=== PATIENT | female | born 1950 | race Hispanic/Latino ===

== ENCOUNTER 2018-09-23 10:48 | Emergency (ER) | payer MEDICARE ==
--- NOTE | 2018-09-23 12:07 | RAD REPORT ---
EXAM DESCRIPTION: CT - Head C Spine Mpr Wo Con - 09/23/2018 11:41 am CLINICAL HISTORY: Head and neck injury status post fall. Head and neck pain COMPARISON: None. TECHNIQUE: Computed axial tomography of the head and cervical spine was obtained. Sagittal and coronal reconstruction was performed. All CT scans are performed using dose optimization technique as appropriate and may include automated exposure control or mA/KV adjustment according to patient size. FINDINGS: An intracranial bleed is not seen. The ventricles are normal in caliber. An extra-axial fl uid collection is not noted.Fluid within the visualized sinuses and mastoids is not seen A cervical fracture is not visualized. No dislocation is noted. Spondylosis involves the cervical spi ne resulting in mild central spinal stenosis. Moderate foraminal stenosis is also noted. IMPRESSION: No acute intracranial abnormality is seen. A cervical fracture is not visualized. If the patient continues to have symptoms to suggest intracra nial /spinal cord pathology then MRI would be recommended
--- NOTE | 2018-09-23 12:20 | EDPHYS ---
Physician Documentation [facility] Name: Cata Godwin Age: 67 yrs Sex: Female : 1950 Arrival Date: 09/23/2018 Time: 10:53 Bed 20 Private MD: ED Physician Joseph Mcintosh HPI: 09/23 11:19 This 67 yrs old Female presents to ER via Ambulatory with complaints of Fall cp Injury, Head Injury-Adult. 11:19 Details of fall: The patient fell from an upright position, while standing, and struck cp shower wall. 11:20 Onset: The symptoms/episode began/occurred 5 day(s) ago. Associated injuries: The cp patient sustained injury to the head, contusion, tenderness, neck injury, pain. Severity of symptoms: in the emergency department the symptoms are unchanged. Patient reports headache that waxes and wanes since slip and fall in shower that caused her to hit her head Thursday. Patient reports brief LOC. Historical: - Allergies: 10:56 PENICILLINS; sv - PMHx: 10:56 None; sv - PSHx: 10:56 None; sv - Immunization history:: Adult Immunizations up to date. - Social history:: Smoking status: Patient/guardian denies using tobacco. - Ebola Screening: : No symptoms or risks identified at this time. ROS: 11:25 Constitutional: Negative for body aches, chills, fever, poor PO intake. cp 11:25 Eyes: Negative for injury, pain, redness, and discharge. cp 11:25 ENT: Negative for drainage from ear(s), ear pain, difficulty swallowing, difficulty handling secretions. 11:25 Neck: Positive for tenderness. 11:25 Cardiovascular: Negative for chest pain. 11:25 Respiratory: Negative for cough, shortness of breath, wheezing. 11:25 Abdomen/GI: Negative for abdominal pain, vomiting, diarrhea, constipation, black/tarry stool, rectal bleeding. 11:25 Back: Negative for pain at rest, pain with movement. 11:25 : Negative for urinary symptoms. 11:25 Skin: Negative for rash. 11:25 Neuro: Positive for headache, Negative for altered mental status. 11:25 All other systems are negative. Exam: 11:30 Constitutional: The patient appears in no acute distress, alert, awake, cp non-diaphoretic, non-toxic, well developed, well nourished. 11:30 Head/face: Noted is tenderness, that is mild, of the left side of the back of head and cp left occipital area. 11:30 Eyes: Periorbital structures: appear normal, Pupils: equal, round, and reactive to light and accomodation, Extraocular movements: intact throughout, Conjunctiva: normal, Lids and lashes: appear normal, bilaterally. 11:30 ENT: External ear(s): are unremarkable, Ear canal(s): are normal, clear, TM's: dullness, bilaterally, Nose: is normal, Mouth: Lips: moist, Oral mucosa: moist, Posterior pharynx: is normal, airway is patent, no erythema, no exudate. 11:30 Neck: External neck: tenderness, that is mild, of the left mid cervical area and left trapezius, ROM/movement: limited range of motion, is not appreciated, nuchal rigidity, is not appreciated. 11:30 Chest/axilla: Inspection: normal. 11:30 Cardiovascular: Rate: normal, Rhythm: regular. 11:30 Respiratory: the patient does not display signs of respiratory distress, Respirations: normal, no use of accessory muscles, no retractions, no splinting, no tachypnea, labored breathing, is not present, Breath sounds: are clear throughout, no decreased breath sounds, no stridor, no wheezing. 11:30 Abdomen/GI: Inspection: abdomen appears normal. 11:30 Back: pain, is absent, ROM is normal. 11:30 Musculoskeletal/extremity: Exam is negative for decreased range of motion, deformity, injury. 11:30 Neuro: Orientation: to person, place \T\ time. Mentation: is normal, Cerebellar function: is grossly normal, Motor: moves all fours, strength is normal, Sensation: no obvious gross deficits. Vital Signs: 10:56 BP 129 / 72; Pulse 70; Resp 16; Temp 98.7; Pulse Ox 99% ; Height 5 ft. 3 in. (160.02 sv cm); Pain 0/10; MDM: 11:08 Patient medically screened. cp 11:30 Differential diagnosis: closed head injury, contusion, fracture, concussion. cp 12:18 Data reviewed: vital signs, nurses notes, radiologic studies, CT scan. cp 12:18 Counseling: I had a detailed discussion with the patient and/or guardian regarding: the cp historical points, exam findings, and any diagnostic results supporting the discharge/admit diagnosis, radiology results, to return to the emergency department if symptoms worsen or persist or if there are any questions or concerns that arise at home. 09/23 11:19 Order name: CT Head C Spine; Complete Time: 12:09 cp 09/23 12:10 Interpretation: Reviewed report. cp Administered Medications: 12:30 Drug: Tylenol 1000 mg Route: PO; aj1 12:34 Follow up: Response: No adverse reaction aj1 Disposition: 12:45 Chart complete. cp 19:03 Co-signature as Attending Physician, Joseph Mcintosh MD. rn Disposition: 09/23/18 12:19 Discharged to Home. Impression: Concussion with loss of consciousness of 30 minutes or less. - Condition is Stable. - Discharge Instructions: Concussion, Adult, Head Injury, Adult. - Prescriptions for Ibuprofen 800 mg Oral Tablet - take 1 tablet by ORAL route every 8 hours As needed take with food; 30 tablet. - Medication Reconciliation Form, Thank You Letter, Antibiotic Education, Prescription Opioid Use form. - Follow up: Christian Bradshaw MD; When: 2 - 3 days; Reason: symptoms continue. - Problem is new. - Symptoms have improved. Signatures: Dispatcher [employer] EDLita Castillo RN RN aj1 Norma Jacques RN RN sv Nieto, Roman, MD MD rn Page, Corey, PA PA cp Corrections: (The following items were deleted from the chart) 12:34 12:19 09/23/2018 12:19 Discharged to Home. Impression: Concussion with loss of aj1 consciousness of 30 minutes or less. Condition is Stable. Forms are Medication Reconciliation Form, Thank You Letter, Antibiotic Education, Prescription Opioid Use. Follow up: Christian Bradshaw; When: 2 - 3 days; Reason: symptoms continue. Problem is new. Symptoms have improved. cp
--- NOTE | 2018-09-23 12:20 | ER ---
Nurse's Notes [facility] Name: Cata Godwin Age: 67 yrs Sex: Female : 1950 Arrival Date: 09/23/2018 Time: 10:53 Bed 20 Private MD: Diagnosis: Concussion with loss of consciousness of 30 minutes or less Presentation: 09/23 10:54 Presenting complaint: Patient states: head injury after slipping and falling in the bathtub on Thursday, (+) LOC, "I broke the wall in the shower and I was waiting for [employer] to call me back to see if they would cover me coming to the ER but they said it wouldn't be covered but I needed to come." Reports hitting the left parietal side of head. Care prior to arrival: None. 10:54 Acuity: JAVED 4 10:54 Method Of Arrival: Ambulatory 10:56 Transition of care: patient was not received from another setting of care. Onset of sv symptoms was September 18, 2018. Risk Assessment: Do you want to hurt yourself or someone else? Patient reports no desire to harm self or others. Initial Sepsis Screen: Does the patient meet any 2 criteria? No. Patient's initial sepsis screen is negative. Does the patient have a suspected source of infection? No. Patient's initial sepsis screen is negative. Triage Assessment: 10:54 General: Appears in no apparent distress. comfortable, well developed, Behavior is sv calm, cooperative, appropriate for age. Pain: Denies pain. Neuro: Level of Consciousness is awake, alert, obeys commands, Oriented to person, place, time, situation, Moves all extremities. Full function Gait is steady, Speech is normal, Facial symmetry appears normal. Respiratory: Respiratory effort is even, unlabored, Respiratory pattern is regular, symmetrical. Derm: Skin is pink, warm \\T\\ dry. Historical: - Allergies: 10:56 PENICILLINS; sv - PMHx: 10:56 None; sv - PSHx: 10:56 None; sv - Immunization history:: Adult Immunizations up to date. - Social history:: Smoking status: Patient/guardian denies using tobacco. - Ebola Screening: : No symptoms or risks identified at this time. Screenin:30 Abuse screen: Denies threats or abuse. Denies injuries from another. Nutritional aj1 screening: No deficits noted. Tuberculosis screening: No symptoms or risk factors identified. 12:33 Fall Risk Fall in past 12 months (25 points). No secondary diagnosis (0 pts). No IV (0 aj1 pts). Ambulatory Aid- None/Bed Rest/Nurse Assist (0 pts). Gait- Normal/Bed Rest/Wheelchair (0 pts) Mental Status- Oriented to own ability (0 pts). Total Arnold Fall Scale indicates Low Risk Score (25-44 pts). As available Patient and Family Educated on Fall Prevention Program and strategies. Assessment: 11:30 General: Appears in no apparent distress. comfortable, Behavior is calm, cooperative, aj1 appropriate for age. Pain: Complains of pain in left frontal area and left temporal area. Neuro: Level of Consciousness is awake, alert, obeys commands, Oriented to person, place, time, situation, Moves all extremities. Full function Gait is steady, Speech is normal, Facial symmetry appears normal, Reports She hit her head on Thursday, + LOC. Cardiovascular: Patient's skin is warm and dry. Respiratory: Airway is patent Respiratory effort is even, unlabored, Respiratory pattern is regular, symmetrical. GI: No signs and/or symptoms were reported involving the gastrointestinal system. : No signs and/or symptoms were reported regarding the genitourinary system. EENT: No signs and/or symptoms were reported regarding the EENT system. Derm: No signs and/or symptoms reported regarding the dermatologic system. Skin is pink, warm \\T\\ dry. normal. Musculoskeletal: No signs and/or symptoms reported regarding the musculoskeletal system. Circulation, motion, and sensation intact. 12:33 Reassessment: Patient appears in no apparent distress at this time. No changes from aj1 previously documented assessment. Patient and/or family updated on plan of care and expected duration. Pain level reassessed. Patient is alert, oriented x 3, equal unlabored respirations, skin warm/dry/pink. Vital Signs: 10:56 BP 129 / 72; Pulse 70; Resp 16; Temp 98.7; Pulse Ox 99% ; Height 5 ft. 3 in. (160.02 sv cm); Pain 0/10; ED Course: 10:53 Patient arrived in ED. tw3 10:55 Triage completed. sv 10:57 Arm band placed on. sv 10:58 Patient placed in waiting room, Patient notified of wait time. sv 11:08 David Bowen PA is PHCP. cp 11:08 Joseph Mcinotsh MD is Attending Physician. cp 11:26 Lita Hansen, RN is Primary Nurse. aj1 11:30 Patient has correct armband on for positive identification. Bed in low position. Call aj1 light in reach. Side rails up X 1. 11:30 No provider procedures requiring assistance completed. aj1 11:41 CT completed. Patient tolerated procedure well. Patient moved to CT. Patient moved back mn from CT. 11:41 CT Head C Spine In Process Unspecified. EDMS 12:19 Christian Bradshaw MD is Referral Physician. cp 12:33 Patient did not have IV access during this emergency room visit. aj1 Administered Medications: 12:30 Drug: Tylenol 1000 mg Route: PO; aj1 12:34 Follow up: Response: No adverse reaction aj1 Outcome: 12:19 Discharge ordered by MD. cp 12:33 Discharged to home ambulatory. aj1 12:33 Condition: good 12:33 Discharge instructions given to patient, Instructed on discharge instructions, follow up and referral plans. medication usage, Demonstrated understanding of instructions, follow-up care, medications, Prescriptions given X 1. 12:34 Patient left the ED. aj1 Signatures: Dispatcher [employer] EDAL Lita Hansen, RN RN Norma Babra RN RN David Lopes PA PA cp Jordan, Nathan nj Wade, Keily tw3
[2018-09-23] MEDS ORDERED: ACETAMINOPHEN 500 MG TAB ONE (12:28)
== END 2018-09-23 12:34 | disposition home or self-care (01) ==
LOC: ER 10:48
DX: S06.0X1A Concussion with loss of consciousness of 30 minutes or less, initial encounter (principal); W18.2XXA Fall in (into) shower or empty bathtub, initial encounter; Z88.0 Allergy status to penicillin
CPT/HCPCS: 70450; 72125; 99284

== ENCOUNTER 2018-11-16 07:50 | Day surgery (SDC) | payer MEDICARE ==
[2018-11-16] MEDS ORDERED: Ringers Lactate 1,000 ML IV ONE (08:12)
[2018-11-16] MEDS: LIDOCAINE 1% W/EPI 1:100,000 MDV 50 ML VIAL ONE ×3 (08:56→09:42)
[2018-11-16] MEDS ORDERED: PROPOFOL 200 MG/20 ML VIAL IV ONE ×2 (08:59→10:06)
[2018-11-16] MEDS ORDERED: LIDOCAINE 2% MPF 5 ML VIAL ONE (09:00)
[2018-11-16] MEDS ORDERED: MIDAZOLAM HCL 2 MG/2 ML INJ ONE (09:00)
[2018-11-16] MEDS ORDERED: FENTANYL CITR 100 MCG/2 ML ONE (09:00)
[2018-11-16] MEDS ORDERED: NA CHLORIDE 0.9% 1,000 ML ONE (09:06)
--- NOTE | 2018-11-16 10:33 | RAD REPORT ---
EXAM DESCRIPTION: US - Ultrasound Intraop - 11/16/2018 10:22 am CLINICAL HISTORY: OR Pelvic pain COMPARISON: No comparisons FINDINGS: Intraoperative sonography of cervix was performed for hysteroscopy procedure performed in position. Details of the procedure not available.
--- NOTE | 2018-11-18 05:24 | OP ---
Date of Procedure: 11/16/2018 Surgeon: Janie Coombs MD Preoperative Diagnoses: Postmenopausal bleeding, incomplete uterovaginal prolapse stage III, and urg e urinary incontinence. Postoperative Diagnoses: Cervical stenosis, postmenopausal bleeding, incomplete uterovaginal prolaps e stage III, and urge urinary incontinence. Procedures Performed: 1.Exam under anesthesia for determination of the vaginal erosion and identification of the cervix wh ich was difficult clinically at the bedside as well as by her prior spa supervisor. 2.Hysteroscopy and dilation and curettage. 3.Intraoperative ultrasound performed with a pelvic probe done in conjunction with a hardware technician in the operating room. 4.Cystourethroscopy. Anesthesia: Deep monitored anesthesia care. Specimens: Endometrial curettings which were very scant. Complications: No complications. Drains: No drains. Condition: The patient's condition stable. Findings: 1.Cystoscopy unremarkable. No evidence of any bladder tumors, diverticula, or stones. No other abn ormalities were seen inside the bladder. 2.There was a large vaginal erosion on the most dependent part of the vaginal protrusion, which is o n the anterior wall apex including the cervix and the posterior cul-de-sac. 3.There was an extremely stenotic cervix, which after identification with retrograde filling of the bladder using the intraoperative ultrasound, the external os had to be opened with the tip of a hemos tat and then hysteroscopy performed directly to enter the cavity. 4.Endometrial cavity was empty and endometrial lining extremely atrophic. Indication: The patient is a 68-year-old female referred to me for postmenopausal bleeding and prola pse, difficult identifying her cervix. It was extremely challenging for patient to tolerate my exam in order to patiently examine and identify the cervix. On transvaginal ultrasound, the uterus was fo und and was small. Endometrium appeared to be not significantly thickened; however, given the fact t hat she needed treatment for prolapse and she chose to have surgical treatment, evaluation of her [place] status location was very important and sampling of the endometrium important in determining the preservation or removal of the uterus alongside the surgical procedure for prolapse. Description Of Procedure: After informed consent was verified, the patient was taken back to OR. kay was placed in supine fashion on the operating table. After MAC was given, she was placed in a dors al lithotomy position using Craig stirrups. The protrusion was very obvious. A large erosion was vi sualized. At the top edge of the erosion, Allis clamp was placed. On multiple attempts, I could not identify the cervix. Then, plan was to perform a cystoscopy. Prep x3 with Betadine was done on the external urethral meatus, and using the 30-degree lens and a SlimLine hysteroscope, I went ahead and visualized the urethra and directly entered the bladder. The entire bladder was well visualized. N o evidence of any tumors, diverticula, or stones. Both ureteric orifices were well visualized. They were singular on both sides and good jets of urine from both. The bladder was left filled. The sco pe was removed. Then, intraoperative ultrasound was requested. After identifying the uterus beneath the bladder, the endometrial cavity was lined up in the sagittal plane and followed to identify the cervical canal. Once the cervical canal was identified, I was able to figure out the location of the external os, which appeared to be scarred, and so using the tip of a tonsil clamp, I was able to ope n this up. Once this was opened, I could see the epithelium and the endocervical canal. A single-to oth tenaculum was placed. This was in the area in the center of the erosion. Then using a SlimLine diagnostic hysteroscope, cervical canal was traversed. Uterine cavity was entered, extremely atrophi c. Both tubal ostia visualized. Scope removed. 0 curette for curettings, extremely scant sample ob tained, however, sent for permanent pathology. The tenaculum was removed. No significant bleeding. All instrument, needle, and sponges were accounted and were correct. The bladder was drained with t he sheath. The patient was recovered from anesthesia and taken to the PACU in stable condition, and she will follow up with us in 1 week. I would not be surprised if the endometrial curettage sample d oes not have adequate endometrium because that is what is consistent with her ultrasound findings and consistent with her hysteroscopic findings. BLAYNE/CHERIE Voice ID: [id number] Report ID: [id number]
== END 2018-11-16 11:20 | disposition home or self-care (01) ==
LOC: OR 07:50
PROVIDERS: ATTEND Obstetrics & Gynecology
PROC: 0UJD8ZZ Inspection of Uterus and Cervix, Via Natural or Artificial Opening Endoscopic (ICD-10-PCS; 2018-11-16)
PROC: 0TJB8ZZ Inspection of Bladder, Via Natural or Artificial Opening Endoscopic (ICD-10-PCS; 2018-11-16)
PROC: 0UDB7ZX Extraction of Endometrium, Via Natural or Artificial Opening, Diagnostic (ICD-10-PCS; principal; 2018-11-16 09:30)
DX: N95.0 Postmenopausal bleeding (principal); N88.2 Stricture and stenosis of cervix uteri; N81.3 Complete uterovaginal prolapse; N39.41 Urge incontinence; E11.9 Type 2 diabetes mellitus without complications
CPT/HCPCS: 58558; 52000; 88305; 76998; J2704 ×2; J2250; J3010; J7030

== ENCOUNTER 2021-10-31 19:21 | Emergency (ER) | payer MEDICARE ==
--- OUTSIDE RECORDS SUMMARY | 2021-10-31 19:23 | XMS REPORT | Continuity of Care Document ---
:1950 Author Organization [facility] t Address [address] [place] [address] Care Team Providers Name Role Phone Nataliya Adair Attending Clinician Unavailable Bianca Carney Attending Clinician Unavailable Physician, Primary or Family Admitting Clinician Unavailabl e Payers Payer Name Policy Type Policy Number Effective Date Expiration Date S ource Problems This patient has no known problems. Allergies, Adverse Reactions, Alerts Allergy Allergy Status Severity Reaction(s) Onset Inactive Treating Comm ents Source Name Type Date Date Clinician [place] DA Active U 2020-0 [facility] ins 12-13 Clear 00:00: Stanton 00 [facility] Penicill DA Active U UNKNOWN 2019-0 [facility] ins 12-13 Clear 00:00: Stanton 00 [facility] Medications This patient has no known medications. Procedures This patient has no known procedures. Encounters Start End Encounter Admission Attending Care Care Encounter Source Date/Time Date/Time Type Type Clinicians Facility Department ID 2021-07-10 Outpatient Trini Adair [facility] [id number] 2 Common 13:25:19 [id number] [facility] 2021-07-10 Outpatient Trini Adair [facility] [id number] 2 Common 12:09:46 [id number] [facility] 2021-07-10 Outpatient Trini Adair [facility] [id number] 2 Common 11:25:31 [id number] [facility] 2021-07-10 Outpatient Trini Adair [facility] [id number] 2 Common 11:22:20 [id number] [facility] 2020-06-25 2020-06-25 Outpatient EL Angelika, [facility] RADI [id number] -[id number] [facility] 12:06:00 12:06:00 [facility] [id number] [facility] 2019-12-23 2019-12-23 Outpatient Angelika, [facility] OUTD [id number] -20 [facility] 13:00:00 13:00:00 [facility] 2019-12-20 2019-12-20 Outpatient Angelika, [facility]ACL LABO [id number] -[id number] [facility] 13:58:00 13:58:00 Bethany [facility] 2019-12-20 2019-12-20 Outpatient Angelika, [facility] OUTD [id number] [facility] 11:30:00 11:30:00 [facility] 2019-12-14 2019-12-14 Outpatient Angelika, [facility] REFE [id number] -[id number] [facility] 13:13:00 13:13:00 Bethany [facility] 2019-12-14 2019-12-14 Outpatient Angelika, [facility] OUTD [id number] [facility] 12:30:00 12:30:00 Bethany [facility] Results Test Description Test Time Test Comments Results Result Sourc e Comments SCR MAMM BILATERAL 2020-12-13 MICHAEL CAD DIGITAL 12:08:39 Name: Taisha : 1950 Sex: F - SCR MAMM BILATERAL MICHAEL CAD DIGITALBILATERAL DIGITAL SCREENING MAMMOGRAM 3D/2D WITH CAD: 12/12/2020LINICAL: Asymptomatic. Digital breast tomosynthesis was performed in addition to routine CC and MLO views. Current mammographic images were evaluated by [employer] ImageLabtiva CAD (computer-aided detection) software. Comparison is made to exams dated 04/18/2019 mammogram, 02/01/2018 mammogram, and 07/09/2015 mammogram - [facility] There are scattered fibroglandular tissues in both breasts. No suspicious mass, architectural distortion, malignant type calcification, or lymph node abnormality detected. Breast architecture is stable compared to prior exams.IMPRESSION: NEGATIVEThere is no mammographic evidence of malignancy. Resume annual screening mammography in one year. Holly Fields M.D. yacrispni/corrinerad:12/13/2020 12:08:39 Ehs Teacher: Gena VAQZUEZ, [facility]-GWletter sent: BIRADS 1-2 Normal Mammogram BI-RADS: 1 Negative UTERUS W/WO 2019-12-27 TUBE/OVA. PROLAPSE 09:59:00 ----RUN DATE: 12/27/19 [facility] PAGE 1 RUN TIME: 1749 Specimen Inquiry RUN USER: INTERFACE ----PATIENT: [facility]ISHA [facility]OW[facility] [id number] AGE/SX: 69/F ROOM: 2606 RE12/23/19REG DR: Bethany Carney MD : 54 BED: A DIS: 12/24/19 STATUS: DIS Sita TLOC: ---- SPEC #: [id number] RECD: 12/23/19 STATUS: BOUBACAR RECrispin #: [id number] IVETH: 12/23/19- SUBM DR: Bethany Carney MD ENTERED: 12/23/19 SP TYPE: UTERUSPRO OTHR DR: ORDERED: LEVEL IV CODES: [id number] - UTERUS, NOS PROCEDURES: LEVEL IV (Incomplete) TISSUES: UTERUS, NOS - CERVIX, UTERUS TUBES AND OVARIES CLINICAL HISTORY 69 year old, cystocele, complete uterine prolapse, stress urinary incontinence (wpd) FINAL DIAGNOSIS Uterus, hysterectomy: cervix - exocervical hyperkeratosis (history of complete uterine prolapse) endometrium - focal complex hyperplasia without atypia myometrium - no pathologic diagnosis serosa - no pathologic diagnosis right ovary and fallopian tube - fibroma - benign paratubal cyst left ovary and fallopian tube - corpora albicans - ovarian surface inclusion cyst CPT code(s): 47206 cds/wpd GROSS DESCRIPTION ANATOMIC SOURCE OF TISSUE (per Requisition): Cervix, uterus, both tubes and ovaries The specimen is received in a formalin-filled container, labeled with the patient's name and designated "cervix, uterus, both tubes and ovaries". The specimen consists of a 70 gm, 8.0 x 5.0 x 4.0 cm uterus with cervix (4.5 x 4.0 cm, with a 0.7 cm slit-like os), bilateral tubes (5.5 x 0.7 cm right and 5.5 x 0.9 cm left) and bilateral ovaries (2.3 x 2.0 x 1.0 cm right and 2.0 x 1.0 x 1.0 cm left). The serosa is stanton-pink and dull. The specimen is bivalved to reveal a 3.0 x 2.0 cm stanton-pink endometrial cavity. The endometrial thickness averages 0.1 cm. The myometrium is stanton-pink and trabecular. CONTINUED ON NEXT PAGE ----RUN DATE: 12/27/19 [facility] PAGE 2 RUN TIME: 1748 Specimen Inquiry RUN USER: INTERFACE ----SPEC #: [id number] PATIENT: TAISHA DOWLING #[id number] (Continued) GROSS DESCRIPTION (Continued) The endocervix is stanton-pink and corrugated. The ectocervix is stanton-white and wrinkled. The right fallopian tube is pink-purple with fimbriae. Sectioning reveals a pinpoint lumen. The right ovary is stanton-yellow with a 1.5 x 1.0 cm attached nodule. The nodule is sectioned to reveal a stanton-white cut surface. The left fallopian tube is pink-purple with fimbriae. Sectioning reveals a pinpoint lumen. The left ovary is stanton-yellow and vaguely lobular. Sectioning reveals a yellow-pink cut surface. Sdc Teacher sections are submitted as follows: A1 - anterior cervix, A2 - posterior cervix, A3 - anterior endomyometrium, full-thickness, A4 - posterior endomyometrium, full-thickness and housing management representative section of right ovary with nodule, A5 - right fallopian tube and right ovary with nodule, A6 - left fallopian tube and left ovary. meenakshi/rafa 12/23/19 Signed Neto Hope 12/27/19 0959 ---- END OF REPORT HGB HCT 2019-12-24 06:26:00 Test Item Value Reference Range Interpretation Comme nts HEMOGLOBIN (test code = HGB) 11.3 g/dL 10.7-13.9 N HEMATOCRIT (test code = HCT) 34.1 % 32.1-42.1 N [id number] 10:16:00 Test Item Value Reference Range Interpretation Comments GLUBED (test code = GLUBED) 80 mg/dL 65-110 N Novel Coronavirus 2018 [id number] 10:13:00 Test Item Value Reference Range Interpretation Comments Novel Coronavirus 2018 Inhouse (test Negative Negative code = COVNONPUI) Novel Coronavirus 2018 [id number] 10:13:00 Test Item Value Reference Range Interpretation Comments Novel Coronavirus 2019 Inhouse (test Negative Negative code = COVNONPUI) CHEMISTRY 7 [id number] 17:58:00 Test Item Value Reference Range Interpretation Comments SODIUM (test code = NA) 141 mEq/L 135-145 N POTASSIUM (test code = K) 4.6 mEq/L 3.5-5.0 N CHLORIDE (test code = CL) 104 mEq/L 100-115 N CARBON DIOXIDE (test code = CO2) 30 mEq/L 22-31 N ANION GAP (test code = GAP) 11.60 10-20 N GLUCOSE (test code = GLU) 113 mg/dL 65-110 H BLOOD UREA NITROGEN (test code = 19 mg/dL 7-18 H BUN) GLOMERULAR FILTRATION RATE (test 100 ml/min >60 N code = GFR) CREATININE (test code = CREAT) 0.6 mg/dL 0.5-1.0 N CALCIUM (test code = CA) 9.2 mg/dL 8.4-10.2 N GLYCOSYLATED HEMOGLOBIN (HA1C)2019-12-14 17:58:00 Test Item Value Reference Range Interpretation Comments GLYCOSYLATED 6.0 % 4.8-5.9 H Any condition t hat shortens HEMOGLOBIN (HA1C) erythocyte survival or (test code = GLYHGB) decreas esmean erythrocyte age (e.g., malina very from acute blood los s,hemolytic anemia) will fa lsely lower HGBA1c resultsr egardless of the method used . HGBA1c results from joycelyn lucio HbSS, HbCC, and HbSc must be interpreted with cautiongiven th e pathological pr ocesses, including anemi a,increased red cell turnov er, transfusion req uirements, thatadversely i mpact HGBA1c as a marker of long-term glycemiccontrol . Alternative for ms of testing such as fructosaminesho uld be considered for these patients. GLYCOSYLATED HEMOGLOBIN [id number] 17:58:00 Test Item Value Reference Range Interpretation Comments GLYCOSYLATED 6.0 % 4.8-5.9 H Any condition t hat HEMOGLOBIN (HA1C) shortens e rythocyte (test code = survival or dec reasesmean GLYHGB) erythrocyte age (e.g., recovery from a cute blood loss,hemolytic anemia) will falsely lo wer HGBA1c resultsregardle ss of the method used. H GBA1c results from pa tiealexaswmarylin HbSS, HbCC, and HbSc must be interpreted with cautiongiven th e pathological pr ocesses, including anemia,increase d red cell turnover, trans fusion requirements, thatadversely i mpact HGBA1c as a mar ker of long-term glycemiccontrol . Alternative for ms of testing such as fructosaminesho uld be considered for these patients. MEAN BLOOD GLUCOSE 126 MG/DL 70-110 H (test code = MBG) - XR CHEST 2 [id number] 14:31:00 Patient Name: TAISHA DOWLING Unit No: [id number] EXAMS: CPT CODE: [id number] XR CHEST 2 V 15092 CLINICAL HISTORY: PREOP COMPARISON: NONE PA and lateral films of the chest demonstrate that heart size is normal. Lung kumar are clear. No evidence of pneumonia or congestive failure is seen. Regional skeletal structures demonstrate no acute abnormality. Mild degenerative changes are present in dorsal spine. IMPRESSION: No evidence of pneumonia or congestive failure is seen. at 1431 Reported and signed by: Cliff Mast MD CC: Bethany Carney Technologist: Diane Greenberg RT Trnscrbd D/ (1431) Viridiana Yung Print D/T: S: 12/14/2019 (1434) [facility] NAME: TAISHA DOWLING Radiology Department PHYS: Bethany Villarreal MD [address] : 1950 AGE: 69 SEX: F [place], [place] [address] LOC: [place] PHONE #: [phone] EXAM DATE: 12/14/2019 STATUS: PRE [facility] FAX#: [phone] RAD NO: Page 1 Signed ReportAG HEPATITIS B [id number] 14:30:00 Test Item Value Reference Range Interpretation Comments AG HEPATITIS B SURFACE (test code NONREACTIVE NONREACTIVE = HBSAG) IS CONSENT FORM SIGNED FOR HIV TESTING? YAB HEPATITIS C [id number] 14:30:00 Test Item Value Reference Range Interpretation Comments AB HEPATITIS C (test code = NONREACTIVE NONREACTIVE HCVAB) SIGNAL TO CUTOFF (test code = <0.02 <0.80 N CUTOFF) IS CONSENT FORM SIGNED FOR HIV TESTING? MILTONB HIV 1 14:30:00 Test Item Value Reference Range Interpretation Comments AB HIV 1 2 (test NONREACTIVE NONREACTIVE Done by Noemi Krishnan code = [id number]) 4th Gen HIV Ag/Ab Combo Screen IS CONSENT FORM SIGNED FOR HIV TESTING? YURINALYSIS [id number] 14:17:00 Test Item Value Reference Range Interpretation Comments UA COLOR (test code = COLU) YELLOW YELLOW UA APPEARANCE (test code = CLEAR CLEAR APPU) UA GLUCOSE DIPSTICK (test code NEGATIVE NEG = DGLUU) UA BILIRUBIN DIPSTICK (test NEGATIVE NEG code = BILU) UA KETONE DIPSTICK (test code NEGATIVE NEG = KETU) UA SPECIFIC GRAVITY (test code 1.015 1.001-1.035 N = SGU) UA BLOOD DIPSTICK (test code = 2+ NEG A LISANDRA) UA PH DIPSTICK (test code = 5.0 5-9 MARCELO) UA PROTEIN DIPSTICK (test code NEGATIVE NEG = PROU) UA UROBILINIOGEN DIPSTICK NEGATIVE mg/dL NEG (test code = URO) UA NITRITE DIPSTICK (test code NEG NEG = RIKA) UA LEUKOCYTE ESTERASE DIPSTICK NEG NEG (test code = LEUU) UA WBC (test code = WBCU) 0-2 #/hpf NONE SEEN UA RBC (test code = RBCU) 0-2 #/hpf NONE SEEN UA EPITHELIAL CELLS (test code RARE #/HPF RARE-FEW = EPIU) UA MUCUS (test code = MUCU) RARE NONE SEEN URINE SAMPLE: CLEAN CATCHAG HEPATITIS B [id number] 13:55:00 Test Item Value Reference Range Interpretation Comments AG HEPATITIS B SURFACE (test code NONREACTIVE NONREACTIVE = HBSAG) IS CONSENT FORM SIGNED FOR HIV TESTING? MILTONB HEPATITIS C [id number] 13:55:00 Test Item Value Reference Range Interpretation Comments AB HEPATITIS C (test code = HCVAB) NONREACTIVE SIGNAL TO CUTOFF (test code = CUTOFF) <0.80 IS CONSENT FORM SIGNED FOR HIV TESTING? MILTONB HIV 1 13:55:00 Test Item Value Reference Range Interpretation Comments AB HIV 1 2 (test code = [id number]) NONREACTIVE IS CONSENT FORM SIGNED FOR HIV TESTING? YCHEMISTRY 7 [id number] 13:26:00 Test Item Value Reference Range Interpretation Comments SODIUM (test code = NA) 141 mEq/L 135-145 N POTASSIUM (test code = K) 4.6 mEq/L 3.5-5.0 N CHLORIDE (test code = CL) 104 mEq/L 100-115 N CARBON DIOXIDE (test code = CO2) 30 mEq/L 22-31 N ANION GAP (test code = GAP) 11.60 10-20 N GLUCOSE (test code = GLU) 113 mg/dL 65-110 H BLOOD UREA NITROGEN (test code = 19 mg/dL 7-18 H BUN) GLOMERULAR FILTRATION RATE (test 100 ml/min >60 N code = GFR) CREATININE (test code = CREAT) 0.6 mg/dL 0.5-1.0 N CALCIUM (test code = CA) 9.2 mg/dL 8.4-10.2 N GLYCOSYLATED HEMOGLOBIN (HA1C)2019-12-14 13:26:00 Test Item Value Reference Range Interpretation Comments GLYCOSYLATED HEMOGLOBIN (HA1C) (test code = GLYHGB) CBC W/AUTO [id number] 13:14:00 Test Item Value Reference Range Interpretation Comments WHITE BLOOD CELL (test code = WBC) 5.4 K/mm3 6.6-12.1 L RED BLOOD CELL (test code = RBC) 4.13 M/mm3 3.45-5.01 N HEMOGLOBIN (test code = HGB) 13.2 g/dL 10.7-13.9 N HEMATOCRIT (test code = HCT) 40.1 % 32.1-42.1 N MEAN CELL VOLUME (test code = MCV) 97 fL 84.1-94.8 H MEAN CELL HGB (test code = MCH) 32.0 pg 27-35 N MEAN CELL HGB CONCETRATION (test 32.9 gm/dL 32.2-34.1 N code = MCHC) RED CELL DISTRIBUTION WIDTH (test 14.4 % 12.4-16.5 N code = RDW) PLATELET COUNT (test code = PLT) 186 K/mm3 133-385 N MEAN PLATELET VOLUME (test code = 9.3 fl 9.1-12.7 N MPV) NEUTROPHIL % (test code = NT%) 47.5 % 56.5-79.4 L LYMPHOCYTE % (test code = LY%) 42.1 % 14.3-34.3 H MONOCYTE % (test code = MO%) 8.7 % 5.1-10.4 N EOSINOPHIL % (test code = EO%) 1.1 % 0.1-3.0 N BASOPHIL % (test code = BA%) 0.4 % 0.1-1.0 N NEUTROPHIL # (test code = NT#) 2.6 K/mm3 LYMPHOCYTE # (test code = LY#) 2.3 K/mm3 MONOCYTE # (test code = MO#) 0.5 K/mm3 EOSINOPHIL # (test code = EO#) 0.06 K/mm3 BASOPHIL # (test code = BA#) 0.0 K/mm3 RBC MORPHOLOGY REQUIRED (test code NORMAL NORMAL = RBCM) PLATELET MORPHOLOGY REQUIRED (test NORMAL NORMAL code = PLTMR) SCR MAMM BILATERAL MICHAEL CAD [id number] 15:42:21 - SCR MAMM BILATERAL MICHAEL CAD DIGITALBILATERAL DIGITAL SCREENING MAMMOGRAM 3D/2D WITH CAD: 04/18/2019 CLINICAL: Asymptomatic. Digital breast tomosynthesis was performed in addition to routine CC and MLO views. Current mammographic images were evaluated by either a [employer] M-Vu or a [employer]Out ImageChecker CAD (computer aided detection system). Comparison is made to exams dated 02/01/2018 mammogram, 07/09/2015 mammogram, and 01/27/2014 mammogram - [facility]-. The tissue of both breasts is heterogeneously dense. This may lower the sensitivity of mammography. No suspicious mass, architectural distortion, malignant type calcification, or lymph node abnormality detected. Breast architecture is stable compared to prior exams.IMPRESSION: NEGATIVEThere is no mammographic evidence of malignancy. Resume annual screening mammography in one year. Marito duran/penrad:04/19/2019 15:42:21 Ehs Teacher: Mary FARLEY, [facility]-letter sent: BIRADS 1- 2 Normal Mammogram BI-RADS: 1 Negative
--- NOTE | 2021-10-31 21:27 | RAD REPORT ---
EXAM DESCRIPTION: RAD - Chest Single View - 10/31/2021 9:19 pm CLINICAL HISTORY: possible COVID Chest pain. COMPARISON: CHEST PA AND LAT 2 VIEW dated 04/09/2015 FINDINGS: Portable technique limits examination quality. The lungs are grossly clear. The heart is normal in size. No displaced fractures. IMPRESSION: No acute intrathoracic process suspected.
--- NOTE | 2021-10-31 21:28 | EDPHYS ---
Physician Documentation [facility] Name: Cata Godwin Age: 71 yrs Sex: Female : 1950 Arrival Date: 10/31/2021 Time: 19:23 Bed 5 Private MD: ED Physician Joseph Mcintosh HPI: 10/31 20:21 This 71 yrs old Female presents to ER via Ambulatory with complaints of rn Headache, Runny Nose, Cough. 20:21 The patient or guardian reports cough, that is intermittent, described as mild, flu rn symptoms. Onset: The symptoms/episode began/occurred 3 day(s) ago. Severity of symptoms: At their worst the symptoms were moderate, in the emergency department the symptoms have improved. Modifying factors: The symptoms are alleviated by nothing, the symptoms are aggravated by nothing. Associated signs and symptoms: Pertinent positives: diarrhea, rhinorrhea, Pertinent negatives: chest pain, fever, sore throat, vomiting. The patient has not experienced similar symptoms in the past. The patient has not recently seen a physician. Pt reports cough, runny nose, sneezing, diarrhea, and headache for 3-4 days. Reports son just tested + for COVID today and she was around him. NO fever. NO medical problems. No sob or chest pain.. Historical: - Allergies: 19:52 PENICILLINS; ld1 - PMHx: 19:52 None; ld1 - PSHx: 19:52 None; ld1 - Immunization history:: Adult Immunizations up to date, Client reports having NOT received the Covid vaccine. - Social history:: Smoking status: Patient denies any tobacco usage or history of. Patient/guardian denies using alcohol. - Family history:: not pertinent. - Hospitalizations: : No recent hospitalization is reported. ROS: 20:21 Constitutional: Negative for fever, chills, and weight loss, Eyes: Negative for injury, rn pain, redness, and discharge, ENT: + nasal congestion and sneezing Neck: Negative for injury, pain, and swelling, Cardiovascular: Negative for chest pain, palpitations, and edema, Respiratory: + cough, neg for sob. Abdomen/GI: + diarrhea, neg for abd pain/vomiting : Negative for injury, bleeding, discharge, and swelling, MS/Extremity: Negative for injury and deformity, Skin: Negative for injury, rash, and discoloration, Neuro: Negative for numbness, tingling, and seizure. Exam: 20:21 Constitutional: This is a well developed, well nourished patient who is awake, alert, rn and in no acute distress. Head/Face: Normocephalic, atraumatic. Eyes: Pupils equal round and reactive to light, extra-ocular motions intact. ENT: Mild pharyngeal erythema, no exudate, no stridor Neck: Trachea midline, no thyromegaly or masses palpated, and no cervical lymphadenopathy. Supple, full range of motion without nuchal rigidity, or vertebral point tenderness. No Meningismus. Cardiovascular: Regular rate and rhythm. No pulse deficits. Respiratory: Speaking full sentences, unlabored. No increased work of breathing, no retractions or nasal flaring. Abdomen/GI: Soft, non-tender Skin: Warm, dry with normal turgor. Normal color with no rashes, no lesions, and no evidence of cellulitis. MS/ Extremity: Pulses equal, no cyanosis. Neurovascular intact. Full, normal range of motion. Equal circumference. Neuro: Awake and alert, GCS 15, oriented to person, place, time, and situation. Cranial nerves II-XII grossly intact. Motor strength 5/5 in all extremities. Sensory grossly intact. Cerebellar exam normal. Normal gait. Vital Signs: 19:51 BP 129 / 86; Pulse 86; Resp 18; Temp 98.3(TE); Pulse Ox 99% on R/A; Weight 61.69 kg; ld1 Height 5 ft. 3 in. (160.02 cm); Pain 0/10; 21:51 Pulse 87; Resp 16; Pulse Ox 98% on R/A; jb4 19:51 Body Mass Index 24.09 (61.69 kg, 160.02 cm) ld1 MDM: 21:16 Patient medically screened. rn 21:26 Differential Diagnosis: Bronchitis Influenza Upper Respiratory Infection Viral Syndrome rn Pneumonia Other COVID. Data reviewed: vital signs, nurses notes, lab test result(s), radiologic studies, plain films, and as a result, I will discharge patient. Data interpreted: Pulse oximetry: on room air is 99 %. Interpretation: normal. Counseling: I had a detailed discussion with the patient and/or guardian regarding: the historical points, exam findings, and any diagnostic results supporting the discharge/admit diagnosis, lab results, radiology results, the need for outpatient follow up, to return to the emergency department if symptoms worsen or persist or if there are any questions or concerns that arise at home. Special discussion: I discussed with the patient/guardian in detail that at this point there is no indication for admission to the hospital. It is understood, however, that if the symptoms persist or worsen the patient needs to return immediately for re-evaluation. 10/31 19:24 Order name: SARS-COV-2 RT PCR (Document "Date of Onset" if Symptomatic); Complete Time: rn 21:30 10/31 19:24 Order name: Flu; Complete Time: 21: rn 10/31 19:24 Order name: Strep; Complete Time: : rn 10/31 19:58 Order name: XRAY Chest (1 view); Complete Time: : rn 10/31 21:09 Order name: Throat Culture EDMS Administered Medications: No medications were administered Disposition Summary: 10/31/21 21:27 Discharge Ordered Location: Home rn Problem: new rn Symptoms: are unchanged rn Condition: Stable rn Diagnosis - SARS-associated coronavirus as the cause of diseases classified elsewhere rn Followup: rn - With: Private Physician - When: As needed - Reason: Recheck today's complaints, Re-evaluation by your physician Discharge Instructions: - Discharge Summary Sheet rn - COVID-19 rn - 10 Things You Can Do to Manage Your COVID-19 Symptoms at Home - [facility] rn - Prevent the Spread of COVID-19 if You Are Sick - [facility] rn Forms: - Medication Reconciliation Form rn - Thank You Letter rn - Antibiotic zinc furnace charger - Prescription Opioid Use rn - Work release form jb4 Prescriptions: - PAXLOVID - take 1 tablet by ORAL route 2 times per day for 5 days; 1 packet; Refills: 0, rn Product Selection Permitted Signatures: Dispatcher [employer] Joseph Mensah MD MD rn Ella Raza RN RN ld1
--- NOTE | 2021-10-31 21:28 | ER ---
Nurse's Notes [facility] Name: Caat Godwin Age: 71 yrs Sex: Female : 1950 Arrival Date: 10/31/2021 Time: 19:23 Bed 5 Private MD: Diagnosis: SARS-associated coronavirus as the cause of diseases classified elsewhere Presentation: 10/31 19:51 Chief complaint: Patient states: I want to be tested for COVID. I have been feeling ld1 sick, nauseous, runny nose and a headache. Coronavirus screen: Client presents with at least one sign or symptom that may indicate coronavirus-19. Standard/surgical mask placed on the client. Ebola Screen: No symptoms or risks identified at this time. Initial Sepsis Screen: Does the patient meet any 2 criteria? No. Patient's initial sepsis screen is negative. Does the patient have a suspected source of infection? No. Patient's initial sepsis screen is negative. Risk Assessment: Do you want to hurt yourself or someone else? Patient reports no desire to harm self or others. Onset of symptoms was October 31, 2021. 19:51 Method Of Arrival: Ambulatory ld1 19:51 Acuity: JAVED 4 ld1 Triage Assessment: 19:52 Headache History: Denies prior headaches. General: Appears in no apparent distress. ld1 comfortable, Behavior is calm, cooperative, appropriate for age. Pain: Denies pain. EENT: No signs and/or symptoms were reported regarding the EENT system. Neuro: Level of Consciousness is awake, alert, obeys commands, Oriented to person, place, time, situation. Cardiovascular: Capillary refill < 3 seconds Patient's skin is warm and dry. Respiratory: Reports cough that is Sneezing Airway is patent Respiratory effort is even, unlabored. GI: Abdomen is flat, non-distended, Reports nausea. Historical: - Allergies: 19:52 PENICILLINS; ld1 - PMHx: 19:52 None; ld1 - PSHx: 19:52 None; ld1 - Immunization history:: Adult Immunizations up to date, Client reports having NOT received the Covid vaccine. - Social history:: Smoking status: Patient denies any tobacco usage or history of. Patient/guardian denies using alcohol. - Family history:: not pertinent. - Hospitalizations: : No recent hospitalization is reported. Screenin:51 Abuse screen: Denies threats or abuse. Nutritional screening: No deficits noted. jb4 Tuberculosis screening: No symptoms or risk factors identified. Fall Risk None identified. Assessment: 21:51 General: Appears in no apparent distress. comfortable, Behavior is cooperative, jb4 anxious. Pain: Denies pain. Neuro: Level of Consciousness is awake, alert, obeys commands, Oriented to person, place, time, situation. Cardiovascular: Patient's skin is warm and dry. Respiratory: Airway is patent Respiratory effort is even, unlabored, Respiratory pattern is regular, symmetrical. Derm: Skin is intact, Skin is pink, warm \\T\\ dry. Vital Signs: 19:51 BP 129 / 86; Pulse 86; Resp 18; Temp 98.3(TE); Pulse Ox 99% on R/A; Weight 61.69 kg; ld1 Height 5 ft. 3 in. (160.02 cm); Pain 0/10; 21:51 Pulse 87; Resp 16; Pulse Ox 98% on R/A; jb4 19:51 Body Mass Index 24.09 (61.69 kg, 160.02 cm) ld1 ED Course: 19:23 Patient arrived in ED. bp1 19:52 Triage completed. ld1 19:52 Arm band placed on left wrist. ld1 19:57 Arcadio Abraham PA is PHCP. [facility] 19:57 Joseph Mcintosh MD is Attending Physician. [facility] 19:57 SARS-COV-2 RT PCR (Document "Date of Onset" if Symptomatic) Sent. ld1 19:57 Flu Sent. ld1 19:57 Strep Sent. ld1 21:20 XRAY Chest (1 view) In Process Unspecified. EDMS 21:46 Jason Jones, CLARKE is Primary Nurse. jb4 21:51 Patient has correct armband on for positive identification. Bed in low position. Call jb4 light in reach. Side rails up X 1. Pulse ox on. 21:51 No provider procedures requiring assistance completed. Patient did not have IV access jb4 during this emergency room visit. Administered Medications: No medications were administered Medication: 21:51 VIS not applicable for this client. jb4 Outcome: 21:27 Discharge ordered by . rn 21:51 Discharged to home ambulatory. jb4 21:51 Condition: stable 21:51 Discharge instructions given to patient, Instructed on discharge instructions, follow up and referral plans. medication usage, Demonstrated understanding of instructions, follow-up care, medications, Prescriptions given X 1. 21:53 Patient left the ED. jb4 Signatures: Dispatcher [employer] EDMS Arcadio Abraham PA PA jmm Nieto, Roman, MD MD rn Bryson, James, RN RN jb4 Maggie Smith Lauren, RN RN ld1 Corrections: (The following items were deleted from the chart) 19:58 19:51 BP 129 / 86; Pulse 86bpm; Resp 18bpm; Pulse Ox 99% RA; Temp 98.3F Temporal; 65.77 ld1 kg; Height 5 ft. 3 in.; BMI: 25.6; Pain 0/10; ld1
[2021-10-31 22:01] VITALS: BP 129/86; TEMP 98.3
[2021-10-31 22:05] VITALS: O2SAT 98
== END 2021-10-31 21:53 | disposition home or self-care (01) ==
LOC: ER 19:21
DX: U07.1 COVID-19 (principal); Z88.5 Allergy status to narcotic agent
CPT/HCPCS: 87070; 87081; 87804 ×2; 71045; 99284; U0003